=== PATIENT | male | born 1985 | race American Indian/Alaskan Native ===

== ENCOUNTER 2018-12-27 02:31 | Emergency (ER) | payer SELFPAY ==
[2018-12-27 02:40] VITALS: BP 134/63
[2018-12-27] MEDS ORDERED: TETRACAINE 0.5% OU PRN (03:46)
[2018-12-27] MEDS ORDERED: FUL-GLO OP ONE (03:46)
[2018-12-27] MEDS ORDERED: IBUPROFEN PO ONE (04:59)
[2018-12-27] MEDS ORDERED: TYLENOL PO ONE (04:59)
[2018-12-27] MEDS ORDERED: ZOFRAN ODT PO ONE (04:59)
--- NOTE | 2018-12-27 05:02 | Emergency Department Report ---
ED Eye Problem HPI - General Chief complaint: Eye Problems Stated complaint: RIGHT EYE PAIN Time Seen by Provider: 12/27/18 03:35 Source: patient Mode of arrival: Ambulatory Limitations: No Limitations - History of Present Illness Initial comments: Patient is a 33 yo AA male with no past medical history who presents to the ED with c/o acute onset persistent severe right eye pain for the last 12 hours after an object he was lifting scratched his right eye 12 hours ago at work. Patient states that he has a foreign body sensation in the right eye and s uspects that a foreign object may be trapped in his right eye. Patient denies vision loss, nausea, vomiting, headache, dizziness, neck pain, nosebleed or nasal and sinus congestion. MD chief complaint: eye pain (right eye pain), eye redness, eye injury, foreign body (sensation) -: Sudden, hour(s) (12) Onset Description: sudden, other (right eye scratched by an object at work) Location: right eye Place: work If Injury: direct trauma Eye Symptoms: burning, redness, pain, foreign body sensation, photophobia Severity: moderate Severity scale (0 -10): 7 If Pain, Quality: sharp, burning, aching, throbbing Consistency: constant Context: trauma Associated Symptoms: none. denies: headache, neck pain, nausea/vomiting, cough, rhinorrhea, fever, shortness of breath Treatments Prior to Arrival: irrigated eye - Related Data Patient Tetanus UTD: Yes Previous Rx's Medication Instructions Recorded Last Taken Type Acetaminophen/Codeine 1 tab PO Q6H PRN #14 tab 06/17/14 Unknown Rx [Acetaminophen-Codeine #3 TAB] Cyclobenzaprine [Flexeril 10mg] 10 mg PO TID PRN #20 tablet 06/17/14 Unknown Rx Ibuprofen [Motrin] 800 mg PO Q8H PRN #30 tablet 06/17/14 Unknown Rx Ibuprofen [Motrin 600 MG tab] 600 mg PO Q8H PRN #60 tablet 12/24/14 Unknown Rx traMADol [Ultram 50 MG tab] 50 mg PO Q6HR PRN #14 tablet 12/24/14 Unknown Rx DOXYCYCLINE Hyclate [Vibramycin 100 mg PO Q12HR #14 capsule 03/06/16 Unknown Rx CAP] Acetaminophen/Codeine [Tylenol 1 tab PO Q6H PRN #12 tab 12/27/18 Unknown Rx /Codeine # 3 tab] Ibuprofen [Motrin] 800 mg PO Q8HR PRN #20 tablet 12/27/18 Unknown Rx Tobramycin 0.3% [Tobrex] 1 drop OP Q6HR #5 ml 12/27/18 Unknown Rx Allergies Allergy/AdvReac Type Severity Reaction Status Date / Time No Known Allergies Allergy Verified 06/18/13 05:24 ED Review of Systems ROS: Stated complaint: RIGHT EYE PAIN Other details as noted in HPI Constitutional: denies: chills, fever Eyes: eye pain (right eye ), vision change (blurry), other (photophobia). denies: eye discharge ENT: denies: ear pain, throat pain Respiratory: denies: cough, shortness of breath, wheezing Cardiovascular: denies: chest pain, palpitations Endocrine: no symptoms reported Gastrointestinal: denies: abdominal pain, nausea, diarrhea Genitourinary: denies: urgency, dysuria Musculoskeletal: denies: back pain, joint swelling, arthralgia Skin: denies: rash, lesions Neurological: denies: headache, weakness, paresthesias Psychiatric: denies: anxiety, depression Hematological/Lymphatic: denies: easy bleeding, easy bruising ED Past Medical Hx - Past Medical History Previous Medical History?: Yes Additional medical history: Back/neck pain - Surgical History Past Surgical History?: Yes Additional Surgical History: finger surgery neck surg - Social History Smoking Status: Current Every Day Smoker Substance Use Type: Alcohol - Medications Home Medications: Home Medications Medication Instructions Recorded Confirmed Last Taken Type Acetaminophen/Codeine 1 tab PO Q6H PRN #14 tab 06/17/14 Unknown Rx [Acetaminophen-Codeine #3 TAB] Cyclobenzaprine [Flexeril 10mg] 10 mg PO TID PRN #20 tablet 06/17/14 Unknown Rx Ibuprofen [Motrin] 800 mg PO Q8H PRN #30 tablet 06/17/14 Unknown Rx Ibuprofen [Motrin 600 MG tab] 600 mg PO Q8H PRN #60 tablet 12/24/14 Unknown Rx traMADol [Ultram 50 MG tab] 50 mg PO Q6HR PRN #14 tablet 12/24/14 Unknown Rx DOXYCYCLINE Hyclate [Vibramycin 100 mg PO Q12HR #14 capsule 03/06/16 Unknown Rx CAP] Acetaminophen/Codeine [Tylenol 1 tab PO Q6H PRN #12 tab 12/27/18 Unknown Rx /Codeine # 3 tab] Ibuprofen [Motrin] 800 mg PO Q8HR PRN #20 tablet 12/27/18 Unknown Rx Tobramycin 0.3% [Tobrex] 1 drop OP Q6HR #5 ml 12/27/18 Unknown Rx ED Physical Exam - General Limitations: No Limitations General appearance: alert, in no apparent distress - Head Head exam: Present: atraumatic, normocephalic, normal inspection - Eye Eye exam: Present: normal appearance, PERRL, EOMI, other (Erythematous right conjunctiva with photophobia and tearing) Pupils: Present: normal accommodation - ENT ENT exam: Present: normal exam, normal orophraynx, mucous membranes moist, TM's normal bilaterally, normal external ear exam - Neck Neck exam: Present: normal inspection, full ROM - Respiratory Respiratory exam: Present: normal lung sounds bilaterally. Absent: respiratory distress, wheezes, chest wall tenderness, accessory muscle use, prolonged expiratory - Cardiovascular Cardiovascular Exam: Present: regular rate, normal rhythm, normal heart sounds. Absent: systolic murmur, diastolic murmur, rubs, gallop - GI/Abdominal GI/Abdominal exam: Present: soft, normal bowel sounds. Absent: distended, tenderness, guarding, hyperactive bowel sounds, hypoactive bowel sounds, organomegaly - Rectal Rectal exam: Present: deferred - Extremities Exam Extremities exam: Present: normal inspection, full ROM, normal capillary refill - Back Exam Back exam: Present: normal inspection, full ROM. Absent: CVA tenderness (L), muscle spasm, paraspinal tenderness, vertebral tenderness - Neurological Exam Neurological exam: Present: alert, oriented X3, CN II-XII intact, normal gait, reflexes normal - Psychiatric Psychiatric exam: Present: normal affect, normal mood - Skin Skin exam: Present: warm, dry, intact, normal color. Absent: rash ED Course Vital Signs 12/27/18 02:36 Temperature 97.7 F Pulse Rate 64 Respiratory 18 Rate Blood Pressure 134/63 O2 Sat by Pulse 98 Oximetry - Reevaluation(s) Reevaluation #1: 12/27/18 05:06 Patient is alert and oriented 3 and is not in distress but in pain due to right eye injury. Patient is right eye was treated for pain with Tetracaine 0.5% ophthalmic solution, and Wood's lamp exam with fluorescein stain shows anterior right corneal abrasion. Patient right eye was covered with an improvised eye patch and patient treated for pain. Patient was discharged home on pain medications and prophylactic antibiotic eyedrops and the patient advised to follow-up with an medical office manager for further evaluation. Patient was advised to return to the ED immediately if symptoms get worse. ED Medical Decision Making - Medical Decision Making Patient is alert and oriented 3 and is not in distress but in pain due to right eye injury. Patient is right eye was treated for pain with Tetracaine 0.5% ophthalmic solution, and Wood's lamp exam with fluorescein stain shows anterior right corneal abrasion. Patient right eye was covered with an improvised eye patch and patient treated for pain. Patient was discharged home on pain medications and prophylactic antibiotic eyedrops and the patient advised to follow-up with an medical office manager for further evaluation. Patient was advised to return to the ED immediately if symptoms get worse. - Differential Diagnosis acute right eye injury; Corneal abrasion, Keratitis Critical care attestation.: If time is entered above; I have spent that time in minutes in the direct care of this critically ill patient, excluding procedure time. ED Disposition Clinical Impression: Right corneal abrasion Qualifiers: Encounter type: initial encounter Qualified Code(s): S05.01XA - Injury of conjunctiva and corneal abrasion without foreign body, right eye, initial encounter Right eye injury Qualifiers: Encounter type: initial encounter Qualified Code(s): S05.91XA - Unspecified injury of right eye and orbit, initial encounter Disposition: TO HOME OR SELFCARE Is pt being admited?: No Does the pt Need Aspirin: No Condition: Stable Instructions: Corneal Abrasion (ED) Additional Instructions: Apply the eyedrops to the affected eye as advised, take pain medications by mouth as needed for pain. Follow-up with the medical office manager as advised and contacted the medical office manager to schedule an appointment. Return to the ED immediately if symptoms get worse. Prescriptions: Ibuprofen [Motrin] 800 mg PO Q8HR PRN #20 tablet PRN Reason: Pain , Severe (7-10) Tobramycin 0.3% [Tobrex] 1 drop OP Q6HR #5 ml Acetaminophen/Codeine [Tylenol /Codeine # 3 tab] 1 tab PO Q6H PRN #12 tab PRN Reason: Pain , Severe (7-10) Referrals: ANDREWS HUGGINS MD [Staff Physician] - 3-5 Days Forms: Work/School Release Form(ED) Time of Disposition: 05:11 Print Language: YORUBA
== END 2018-12-27 05:25 | disposition home or self-care (01) ==
LOC: ED 02:31
DX: S05.01XA Injury of conjunctiva and corneal abrasion without foreign body, right eye, initial encounter (principal); F17.200 Nicotine dependence, unspecified, uncomplicated; Z98.890 Other specified postprocedural states; X58.XXXA Exposure to other specified factors, initial encounter; Y93.89 Activity, other specified; Y92.89 Other specified places as the place of occurrence of the external cause; Y99.8 Other external cause status
CPT/HCPCS: Q0162